=== PATIENT | male | born 1950 | race Caucasian/White ===

== ENCOUNTER 2021-05-27 19:29 | Emergency (ER) | payer SELFPAY ==
--- NOTE | 2021-05-27 20:00 | NUR ---
PATIENT WAS CALLED TO BE TRAIGED BUT WAS NOT PRESENT IN THE WAITING ROOM OR OUTSIDE OF ER.
--- NOTE | 2021-05-27 20:10 | NUR ---
PATIENT WAS CALLED TO BE TRAIGED BUT WAS NOT PRESENT IN THE WAITING ROOM OR OUTSIDE OF ER.
--- NOTE | 2021-05-27 20:52 | NUR ---
PATIENT WAS CALLED TO BE TRAIGED BUT WAS NOT PRESENT. PATIENT WAS NOT SEEN BY ERMD OR A[facility]DEND.
== END 2021-05-27 20:53 | disposition left against medical advice (07) ==
LOC: ER 19:34
DX: Z53.21 Procedure and treatment not carried out due to patient leaving prior to being seen by health care provider (principal)